=== PATIENT | male | born 1965 | race Caucasian/White ===

== ENCOUNTER 2018-01-30 06:55 | Observation (INO) | payer BC, OTHER ==
[2018-01-30] MEDS: NITROGLYCERIN 2% 1 GM OINT PKT TD (08:02)
[2018-01-30] MEDS: ASPIRIN 325 MG TAB PO (08:06)
[2018-01-30 08:37] LABS: ADD MAN DIFF? NO
[2018-01-30 08:43] LABS: BASOPHILS % 0.4 % (0.0-2.0); EOSINOPHILS # 0.1 10^3/ul (0.0-0.5); EOSINOPHILS % 2.2 % (0.0-7.0); HEMATOCRIT 45.3 % (42.0-52.0); HEMOGLOBIN 16.3 g/dl (14.0-18.0); LYMPHOCYTES # 1.8 10^3/ul (0.8-2.9); LYMPHOCYTES % 34.3 % (15.0-51.0); MEAN CORPUSCULAR HEMOGLOBIN 32.6 pg (29.0-33.0); MEAN CORPUSCULAR VOLUME 90.6 fl (82.0-101.0); MEAN PLATELET VOLUME 10.1 fl (7.4-10.4); MONOCYTE # 0.5 10^3/ul (0.3-0.9); MONOCYTES % 10.6 % (0.0-11.0); NEUTROPHIL # 2.7 10^3/ul (1.6-7.5); NEUTROPHILS % 52.1 % (39.0-77.0); PLATELET COUNT 201 10^3/UL (140-415); RED CELL DISTRIBUTION WIDTH 12.2 % (11.5-14.5)
[2018-01-30 08:43] LABS: WHITE BLOOD COUNT 5.1 10^3/ul (4.8-10.8)
[2018-01-30 09:01] LABS: ETHANOL < 10.0 mg/dl
[2018-01-30 09:02] LABS: ANION GAP 16 (8-16); BLOOD UREA NITROGEN 16 mg/dl (7-20); CALCIUM 9.2 mg/dl (8.4-10.2); CARBON DIOXIDE 23 mmol/L (21-31); CHLORIDE 108 mmol/L (97-110); CREATININE 0.65 mg/dl (0.61-1.24); GLUCOSE 94 mg/dl (70-220); SODIUM 143 mmol/L (135-144)
[2018-01-30 09:29] LABS: TROPONIN-I < 0.012 ng/ml (0.00-0.12)
[2018-01-30] MEDS ORDERED: ACETAMINOPHEN 325 MG TAB PO ×2 (10:30→12:30)
[2018-01-30] MEDS ORDERED: ONDANSETRON 4 MG INJ IV ×2 (10:30→12:30)
[2018-01-30 10:55] LABS: AMPHETAMINE/METHAMPHETAMINE Negative (NEGATIVE); BARBITURATES Negative (NEGATIVE); BENZODIAZEPINES Negative (NEGATIVE); CANNABINOIDS Negative (NEGATIVE); COCAINE Negative (NEGATIVE); OPIATES Negative (NEGATIVE)
[2018-01-30] MEDS ORDERED: NITROGLYCERIN (SL) 0.4 MG TAB SL (12:30)
[2018-01-30] MEDS ORDERED: morphine 2 MG INJ IV (12:30)
[2018-01-30] MEDS ORDERED: NACL 0.9% 3 ML SYG IV (12:30)
[2018-01-30] MEDS ORDERED: DOCUSATE SODIUM 100 MG CAP PO (12:30)
[2018-01-30 15:23] LABS: CREATINE KINASE 112 IU/L (23-200)
[2018-01-30 15:35] LABS: INR 1.06; PROTIME 13.9 Sec (11.9-14.9); PT RATIO 1.1
[2018-01-30 15:36] LABS: CK INDEX 1.8; PARTIAL THROMBOPLASTIN TIME 33.4 Sec (25.0-35.0)
[2018-01-30 15:38] LABS: CK-MB 1.98 ng/ml (0.0-2.4); TROPONIN-I < 0.012 ng/ml (0.00-0.12)
[2018-01-30 16:10] LABS: HIV 1&2 ANTIBODY REACTIVE (NEGATIVE)
[2018-01-30 18:10] LABS: CREATINE KINASE 106 IU/L (23-200)
[2018-01-30 18:23] LABS: CK INDEX 1.6; TROPONIN-I < 0.012 ng/ml (0.00-0.12)
[2018-01-30] MEDS ORDERED: FAMOTIDINE 20 MG TAB PO (21:00)
[2018-01-31] MEDS ORDERED: ASPIRIN 81 MG TAB PO (09:00)
[2018-01-31] MEDS ORDERED: ENOXAPARIN 40 MG/0.4 ML SYG SC (09:00)
[2018-02-01 14:48] LABS: LYMPHOCYTE - % CD4 (HELPER) 17 % (30-61); LYMPHOCYTE - %CD8 (SUPPRESSOR) 58 % (12-42); LYMPHOCYTE - ABSOLUTE 1865 cells/uL (850-3900); LYMPHOCYTE - ABSOLUTE CD4 311 cells/uL (490-1740); LYMPHOCYTE - ABSOLUTE CD8 1079 cells/uL (180-1170); LYMPHOCYTE - CD4/CD8 RATIO 0.29 (0.86-5.00)
== END 2018-01-30 20:00 | disposition home or self-care (01) ==
LOC: MS3 11:29 → E/R 06:55 → MS3 11:43
DX: R07.9 Chest pain, unspecified (principal); I10 Essential (primary) hypertension; E78.5 Hyperlipidemia, unspecified; Z79.82 Long term (current) use of aspirin
CPT/HCPCS: 36415; 71045; 80048; 80306; 80307; 82550; 82553; 84484; 85025; 85610; 85730; 86360; 86701; 86703; 93005; 93306; 99285-25

== ENCOUNTER 2018-12-05 05:58 | Emergency (ER) | payer BC ==
[2018-12-05 06:51] LABS: ADD MAN DIFF? NO
[2018-12-05] MEDS: SOD CHLORIDE 0.9% 1,000 ML IV (06:51)
[2018-12-05] MEDS: ONDANSETRON 4 MG INJ IV (06:52)
[2018-12-05] MEDS: morphine 4 MG/ML VIAL IV (06:52)
[2018-12-05 06:54] LABS: BASOPHILS % 0.8 % (0.0-2.0); EOSINOPHILS # 0.1 10^3/ul (0.0-0.5); HEMATOCRIT 46.1 % (42.0-52.0); HEMOGLOBIN 16.4 g/dl (14.0-18.0); LYMPHOCYTES # 1.3 10^3/ul (0.8-2.9); LYMPHOCYTES % 32.4 % (15.0-51.0); MEAN CORPUSCULAR HEMOGLOBIN 32.7 pg (29.0-33.0); MEAN CORPUSCULAR HGB CONC 35.6 g/dl (32.0-37.0); MEAN PLATELET VOLUME 9.2 fl (7.4-10.4); MONOCYTE # 0.5 10^3/ul (0.3-0.9); MONOCYTES % 11.3 % (0.0-11.0); NEUTROPHIL # 2.1 10^3/ul (1.6-7.5); NEUTROPHILS % 52.7 % (39.0-77.0); PLATELET COUNT 217 10^3/UL (140-415); RED BLOOD COUNT 5.01 10^6/ul (4.70-6.10); RED CELL DISTRIBUTION WIDTH 11.9 % (11.5-14.5)
[2018-12-05 06:58] LABS: ADD UMIC NO; UR ASCORBIC ACID NEGATIVE (NEGATIVE); UR BILIRUBIN (Dip) NEGATIVE (NEGATIVE); UR BLOOD (Dip) NEGATIVE (NEGATIVE); UR CLARITY CLEAR (CLEAR); UR COLOR YELLOW (YELLOW); UR GLUCOSE (Dip) NEGATIVE (NEGATIVE); UR KETONES (Dip) NEGATIVE (NEGATIVE); UR LEUKOCYTE ESTERASE (Dip) NEGATIVE Leu/ul (NEGATIVE); UR NITRITE (Dip) NEGATIVE (NEGATIVE); UR TOTAL PROTEIN (Dip) NEGATIVE (NEGATIVE); UR UROBILINOGEN (Dip) NEGATIVE (NEGATIVE)
[2018-12-05 07:11] LABS: ALANINE AMINOTRANSFERASE 30 IU/L (13-69); ALBUMIN 4.2 g/dl (3.3-4.9); ALKALINE PHOSPHATASE 76 IU/L (42-121); ANION GAP 11 (5-13); ASPARTATE AMINO TRANSFERASE 30 IU/L (15-46); BILIRUBIN,INDIRECT 1.1 mg/dl (0-1.1); BILIRUBIN,TOTAL 1.1 mg/dl (0.2-1.3); BLOOD UREA NITROGEN 17 mg/dl (7-20); CALCIUM 9.4 mg/dl (8.4-10.2); CARBON DIOXIDE 21 mmol/L (21-31); CHLORIDE 110 mmol/L (97-110); CREATININE 0.61 mg/dl (0.61-1.24); Estimated GFR > 60 mL/min (>60); GLUCOSE 105 mg/dl (70-220); LIPASE 64 U/L (23-300); POTASSIUM 3.7 mmol/L (3.5-5.1); SODIUM 142 mmol/L (135-144); TOTAL PROTEIN 7.7 g/dl (6.1-8.1)
== END 2018-12-05 08:49 | disposition home or self-care (01) ==
LOC: E/R 05:58
DX: R10.31 Right lower quadrant pain (principal); I10 Essential (primary) hypertension
CPT/HCPCS: 36415; 74176; 80053; 81003; 83690; 85025; 96374; 96375; 99285-25